=== PATIENT | male | born 2000 | race Caucasian/White ===

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

== ENCOUNTER → 2021-09-17 15:25 | Outpatient (CLI) | payer BC, SELFPAY | PROVIDERS: Visit Provider Otolaryngology | DX: J02.9 Acute pharyngitis, unspecified (principal) | CPT/HCPCS: 87070 ==

== ENCOUNTER 2021-11-28 08:36 | Outpatient (CLI) | payer OTHER, MEDICAID, SELFPAY ==
--- NOTE | 2021-11-28 08:44 | NM_ITS ---
CLINICAL: 21-year-old male with history of clinically apparent goiter formation-thyromegaly. I-123 THYROID UPTAKE and SCAN COMPARISON: None available FINDINGS: The patient was administered a 313 uCi I-123 capsule by mouth. The 4-hour I-123 radioactive iodine thyroidal uptake was calculated to be 15.6 % (normal 5 to 25 %). The 24-hour I-123 radioactive iodine thyroidal uptake was calculated to be 45.6 % (normal 5 to 40 %). The I-123 thyroid scan demonstrates homogeneous radiopharmaceutical concentration throughout the right lobe of a U-shaped thyroid gland. Heterogeneous uptake is demonstrated in the left lobe thyroid colloid most accentuated in the superior-inferior poles. There are no colloidal parenchymal hypofunctioning-cold nodules noted in either lobe of the thyroid gland. NM/Thyroid Uptake Single or Mult IMPRESSION: 1. NORMAL 4- and MILDLY ABNORMAL ELEVATED 24-hour I-123 radioactive iodine thyroidal uptakes. Correlation with in vitro thyroid function studies is recommended. 2. The I-123 thyroid scan is consistent with the presence of a multinodular left lobe thyroid colloid. In conjunction with the calculated IODINE uptake values findings may represent the presence of a low-grade toxic multinodular left lobe. Electronically Signed: Ashwin Brewster DO at 22:45 EST ,
== END 2021-11-28 23:59 | disposition home or self-care (01) ==
LOC: NM 08:37
PROVIDERS: PCP Family Medicine; Referring Provider Internal Medicine Endocrinology, Diabetes & Metabolism; Visit Provider Internal Medicine Endocrinology, Diabetes & Metabolism
DX: E04.9 Nontoxic goiter, unspecified (principal)
CPT/HCPCS: 78012; A9516

== ENCOUNTER 2024-05-12 13:31 | Emergency (ER) | payer OTHER, MEDICAID, SELFPAY ==
[2024-05-12 13:32] VITALS: BP 126/78; PULSE 114; RESP 20; TEMP 36.3; O2SAT 99; BMI 20.9
[2024-05-12 13:34] VITALS: BP 121/78; BP 124/68; BP 86/76; PULSE 100; PULSE 123; PULSE 98
[2024-05-12 14:05] LABS: Absolute Lymphocyte Count 0.66 X10^3/uL (0.83-4.51); Absolute Neutrophil Count 6.9 X10^3/uL (2.0-7.7); Basophil# 0.01 X10^3/uL; Basophil% 0.1 % (0-1); Eosinophil# 0.01 X10^3/uL; Eosinophils% 0.1 % (0-5); Hematocrit 44.2 % (40-54); Hemoglobin 14.8 g/dL (13.0-16.5); Lymphocyte # 0.66 X10^3/ul (0.83-4.51); Lymphocyte % 8.5 % (19-41); Mean Corp Hgb Conc 33.5 g/dL (32-36); Mean Corpuscular Volume 80.5 fL (80-94); Monocyte# 0.18 X10^3/uL; Monocyte% 2.3 % (0-10); NRBC Flagged by Analyzer 0 % (0-5); Neutrophil % 88.6 % (47-70); Platelet Count 162 K/mm3 (150-450); RBC Distribution Width CV 12.1 % (11.6-14.6); RBC Distribution Width SD 35.1 fl (35.1-43.9); Red Blood Count 5.49 M/mm3 (4.6-6.2); White Blood Count 7.8 K/mm3 (4.4-11.0)
[2024-05-12 14:15] LABS: Anion Gap 6 (5-15); BUN 13 mg/dL (7-18); BUN/Creat Ratio 14.3 RATIO (10-20); Calcium,Total 9.2 mg/dL (8.5-10.1); Chloride 103 mmol/L (98-107); Creatinine, Serum 0.91 mg/dL (0.70-1.30); EST Glomerular Filtration Rate 110 mL/min (>60); Est Glom Filt Rate - Afr Amer 133 mL/min (>60); Estimated Creatinine Clearance 140.84 ml/min; Glucose 133 mg/dL (74-106); Sodium Level 136 mmol/L (136-145)
--- NOTE | 2024-05-12 14:36 | EX.ED.DYSGE1 ---
HPI History of Present Illness Chief Complaint: Head Injury Informant: patient Onset/Context/Timing Onset: Today Context: Sudden Onset Timing: Continuous Quality: Sharp Location: Occiput Worsened by: Nothing Relieved by: Nothing Narrative Narrative: Patient presents with a syncopal/near syncopal episode that occurred this morning. Patient states he awoke around 3 AM today to go to the bathroom. Patient states that when he stood up, he felt lightheaded. Patient fell to the floor. Patient is unsure if he had a brief loss of consciousness or not. Patient states that there is approximately 10 seconds that he cannot recall. Patient states that he fell backwards and hit the back of his head. Patient admits to some nausea and vomiting. Patient denies any visual changes. Patient states he was started on a new medicine recently for excessive sweating. Patient states he took his first dose last evening before he went to bed. [facility] Medical History COVID (07/2021) Intermittent palpitations Anxiety and depression Non-toxic multinodular goiter Home Medications ?Medication ?Instructions ?Recorded ?Last Taken ?Type bupropion HCl 75 mg tablet 75 mg PO DAILY 02/05/22 Unknown History cholecalciferol (vitamin D3) 125 125 mcg PO DAILY 02/05/22 Unknown History mcg (5,000 unit) capsule dextroamphetamine-amphetamine ER 30 mg PO DAILY 02/05/22 Unknown History 30 mg 24hr capsule,extend release (Adderall XR) trazodone 100 mg tablet 100 mg PO QHS 02/05/22 Unknown History venlafaxine 150 mg 150 mg PO DAILY 02/05/22 Unknown History capsule,extended release 24 hr (Effexor XR) Allergy/AdvReac Type Severity Reaction Status Date / Time No Known Allergies Allergy Verified 02/06/22 13:04 Family History Mother Cancer thyroid Surgical History no surgical history no surgical history Social History Smoking Status: Never smoker alcohol intake: never caffeine: Yes eating out: other details: ice tea ROS ROS ED Constitutional Constitutional ED: Denies chills or fever(s) Eyes Eyes: Denies blurry vision or change in vision ENT ENT ED: Denies rhinorrhea or sore throat Cardiovascular Cardiovascular: Denies chest pain or palpitations Respiratory/Chest Respiratory/Chest: Denies cough or dyspnea Gastrointestinal Gastrointestinal: Reports nausea and vomiting Genitourinary Genitourinary ED: Denies dysuria or hematuria Musculoskeletal Musculoskeletal: Denies back pain or neck pain Integumentary Denies abscess or rash Neurologic Neurologic: Reports headache(s); Denies weakness Allergic/Immunologic Allergic/Immunologic ED: Denies mouth swelling or urticaria EXAM Physical Exam Const Vital Signs: 05/12/24 13:32 05/12/24 13:34 05/12/24 14:15 Temperature 97.4 F L Temperature Source Temporal Pulse Rate 114 H Pulse Rate [Lying] 98 Pulse Rate [Sitting (for 1 minute prior to obtaining)] 100 Pulse Rate [Standing (for 1 minute prior to obtaining)] 123 H Respiratory Rate 20 H Respiratory Effort Normal Respiratory Depth Respiratory Pattern Normal Blood Pressure 126/78 H Blood Pressure [Lying] 124/68 H Blood Pressure [Sitting (for 1 minute prior to obtaining)] 121/78 H Blood Pressure [Standing (for 1 minute prior to obtaining)] 86/76 L Blood Pressure Mean 94 Blood Pressure Mean [Lying] 86 Blood Pressure Mean [Sitting (for 1 minute prior to obtaining)] 92 Blood Pressure Mean [Standing (for 1 minute prior to obtaining)] 79 Pulse Ox 99 Oxygen Delivery Method Room Air 05/12/24 14:15 05/12/24 14:16 05/12/24 15:31 Temperature Temperature Source Pulse Rate 73 Pulse Rate [Lying] Pulse Rate [Sitting (for 1 minute prior to obtaining)] Pulse Rate [Standing (for 1 minute prior to obtaining)] Respiratory Rate 14 Respiratory Effort Normal Respiratory Depth Normal Respiratory Pattern Normal Blood Pressure 124/68 H Blood Pressure [Lying] Blood Pressure [Sitting (for 1 minute prior to obtaining)] Blood Pressure [Standing (for 1 minute prior to obtaining)] Blood Pressure Mean 86 Blood Pressure Mean [Lying] Blood Pressure Mean [Sitting (for 1 minute prior to obtaining)] Blood Pressure Mean [Standing (for 1 minute prior to obtaining)] Pulse Ox 99 Oxygen Delivery Method Room Air Room Air Room Air Positive well nourished and well developed General Appearance ED: well developed and NAD HEENT Reports moist mucous membranes Neck supple and no JVD Resp normal respiratory effort and clear to auscultation bilaterally Cardio regular rate and regular rhythm GI non-tender and non-distended Palpation: soft Extremity normal to inspection General Extremety ED: Negative for edema or tenderness General Extremity: Negative for edema Neuro oriented x3, CN's II-XII intact bilaterally and no sensory deficits noted Sensorium / Orientation: alert Motor Exam: strength 5/5 throughout Psych mental status grossly normal MDM MDM MDM Narrative Medical decision making narrative: Differential diagnosis includes vasovagal syncope, medication side effect, dehydration, electrolyte abnormality, intracranial bleeding, closed head injury, cardiac dysrhythmia, and cardiac ischemia. EKG will be obtained to assess for cardiac dysrhythmia and cardiac ischemia. CT scan of brain will be obtained to assess for intracranial bleeding. Chest x-ray will be obtained to assess for widened mediastinum and pneumothorax. CBC will be obtained to assess for leukocytosis and anemia. Basic metabolic profile will be obtained to assess for electrolyte abnormality and renal function. High-sensitivity troponin will be obtained to assess for cardiac ischemia. Lab Data Attestation: I reviewed the patient's lab results. Lab results narrative: CBC was reviewed and was within normal limits. Basic metabolic profile was reviewed and was within normal limits. High-sensitivity troponin was reviewed and was normal at 3. Labs: Laboratory Results - last 24 hr 05/12/24 13:56 WBC 7.8 RBC 5.49 Hgb 14.8 Hct 44.2 MCV 80.5 MCH 27.0 MCHC 33.5 RDW Std Deviation 35.1 RDW Coeff of Sánchez 12.1 Plt Count 162 MPV 10.0 Immature Gran % (Auto) 0.400 Neut % (Auto) 88.6 H Lymph % (Auto) 8.5 L Craven % (Auto) 2.3 Eos % (Auto) 0.1 Baso % (Auto) 0.1 Absolute Neuts (auto) 6.9 Absolute Lymphs (auto) 0.66 L Nucleated RBC % 0 Sodium 136 Potassium 4.0 Chloride 103 Carbon Dioxide 27.0 Anion Gap 6 BUN 13 Creatinine 0.91 Estim Creat Clear Calc 140.84 Est GFR (MDRD) Af Amer 133 Est GFR (MDRD) Non-Af 110 BUN/Creatinine Ratio 14.3 Glucose 133 H Calcium 9.2 Troponin I High Sens 3 Radiography Chest X-Ray - ED: 2 View, Read by ED Physician, Read by Radiologist and No Acute Disease Diagnostic Testing: Clinical Impression(s) from Imaging Studies Brain CT 05/12/24 14:46 IMPRESSION: Normal unenhanced CT scan of the brain. Electronically Signed: Irvin Gilbert MD at 15:04 EDT , Chest X-Ray 05/12/24 14:55 IMPRESSION: Normal x-ray examination of the chest. Electronically Signed: Irvin Gilbert MD at 15:17 EDT , CT scan of the brain was obtained. There is no acute intracranial abnormality. This was interpreted by the radiologist and was also independently reviewed by myself. PA and lateral chest x-ray was obtained. There are 2 views. On my independent interpretation, lung [place] are clear. There is normal cardiac silhouette. Bony thorax is normal. There is no acute process noted. Radiologist also interpreted the x-ray and agrees. EKG Initial EKG: Attestation: I personally reviewed and interpreted this EKG as follows: Interpretation: Sinus Rhythm (89) and No Acute Injury Pattern Comments: EKG was obtained. On my independent interpretation, it showed a normal sinus rhythm with a rate of 89. LA interval, QRS interval, and QTc intervals were all normal. [place] was normal. There are no acute ST or T wave changes. Prior EKG tracings: available for review Prior: Unchanged (12/04/2021) Treatment and Re-Evaluation :: Orthostatic vital signs were obtained and were positive. Patient was given IV fluids. Patient was feeling better on reevaluation. Patient and father were advised of his findings. Patient was instructed to drink plenty of fluids. Patient was instructed to follow-up with his primary care physician in 5 to 7 days. Patient and father understood and were agreeable with plan. All questions were answered. Discharge Plan Triage Chief Complaint: Head Injury Other Complaint: Syncope ED Provider: Choco Garg Dx/Rx/DC Orders Clinical Impression: Near syncope, Positional lightheadedness Instructions: ED Near-Fainting, Uncertain Cause Prescriptions: No Action cholecalciferol (vitamin D3) 125 mcg (5,000 unit) capsule 125 mcg PO DAILY dextroamphetamine-amphetamine [Adderall XR] 30 mg capsule,extended release 24hr 30 mg PO DAILY venlafaxine [Effexor XR] 150 mg capsule,extended release 24hr 150 mg PO DAILY bupropion HCl 75 mg tablet 75 mg PO DAILY Rx Instructions: administer 6 hours apart trazodone 100 mg tablet 100 mg PO QHS Primary Care Provider: Chaparro Zhang Referrals: Chaparro Zhang MD [Primary Care Provider] - 3-5 Days Print Language: Yakut Disposition Disposition: Home, Self Care
--- NOTE | 2024-05-12 14:46 | CT_ITS ---
STUDY: CT BRAIN WITHOUT CONTRAST REASON FOR EXAM: Male, 23 years old. Posterior headache following a fall. RADIATION DOSAGE (If Supplied By Facility): CTDIvol = ( 44.99 ) mGy, DLP = ( 812.98 ) mGycm TECHNIQUE: Transaxial CT imaging of the brain was performed without administration of intravenous contrast material. Individualized dose optimization techniques were used for this CT. COMPARISON: No relevant priors. FINDINGS: Normal soft tissue structures. Normal calvarium. Normal size ventricles and extra-axial spaces for the patient''s age. Normal white matter tracts of the cerebral hemispheres. Normal basal ganglia and thalami. Normal brainstem. Normal cerebellum. There is no intracranial hemorrhage. There are no findings of an acute ischemic infarction. Normal visualized paranasal sinuses. CT/Brain/Head without Contrast IMPRESSION: Normal unenhanced CT scan of the brain. Electronically Signed: Irvin Gilbert MD at 15:04 EDT ,
--- NOTE | 2024-05-12 14:55 | RAD_ITS ---
STUDY: X-RAY CHEST REASON FOR EXAM: Male, 23 years old. Syncope TECHNIQUE: PA and lateral views of the chest. COMPARISON: None. FINDINGS: The lungs are clear and expanded. There is no demonstrated pleural abnormality. Normal size heart. Normal mediastinum and franky. Normal visualized pulmonary arteries. Normal visualized aortic arch and descending thoracic aorta. Normal visualized thoracic spine. Normal visualized ribs, clavicles, and shoulders. There is no demonstrated abnormality of the visualized soft tissue structures of the upper abdomen. RAD/Chest PA and Lateral IMPRESSION: Normal x-ray examination of the chest. Electronically Signed: Irvin Gilbert MD at 15:17 EDT ,
[2024-05-12 15:31] VITALS: BP 124/68; PULSE 73; RESP 14; O2SAT 99
[2024-05-12 15:32] LABS: Troponin-I HS 3 pg/mL (3.0-78.0)
[2024-05-12 16:38] VITALS: BP 124/72; PULSE 95; RESP 16; TEMP 36.4; O2SAT 97
== END 2024-05-12 16:39 | disposition home or self-care (01) ==
PROVIDERS: Emergency Provider Emergency Medicine; PCP Family Medicine; Visit Provider Emergency Medicine
DX: R55 Syncope and collapse (principal); R11.2 Nausea with vomiting, unspecified; R42 Dizziness and giddiness; Z86.16 Personal history of COVID-19; F41.9 Anxiety disorder, unspecified; F32.A Depression, unspecified
CPT/HCPCS: 70450; 71046; 80048; 84484; 85025; 93005; 99285; A4216